=== PATIENT | female | born 1995 | race Caucasian/White ===

== ENCOUNTER 2017-09-04 21:30 | Emergency (ER) | payer OTHER ==
[~2017-09-04] VITALS: Ht 160 cm; Wt 48.4 kg
[2017-09-04 21:34] VITALS: TEMP 38.5; Ht 160 cm; Wt 48.4 kg
[2017-09-04] MEDS ORDERED: IBUPROFEN 600 MG TAB PO STA (21:53)
[2017-09-04] MEDS ORDERED: ACETAMINOPHEN 500 MG TAB PO STA (21:53)
[2017-09-04] MEDS ORDERED: BCPILLS PO (22:18)
[2017-09-04] MEDS ORDERED: CETITAB27 PO (22:18)
[2017-09-04 22:20] LABS: INFLUENZA B ANTIGEN Neg for Influ B (NEG)
[2017-09-04] MEDS ORDERED: OSELTAMIVIR PHOSPHATE 75 MG CAP PO STA (22:21)
[2017-09-04] MEDS ORDERED: OSEL75CA12 PO (23:00)
[2017-09-04 23:26] VITALS: BP 130/71; PULSE 93; O2SAT 97
--- NOTE | 2017-09-05 01:39 | EMERGENCY ROOM VISIT NOTE ---
History First contact with patient: 21:46 Chief Complaint: FLU LIKE SX Stated Complaint: FEVER,CONGESTION,SORE THROAT History of Present Illness The patient is a 22 year old female who presents to the Emergency Room with complaints of fever, chills, and sore throat for the past one to 2 days. The patient states that her parents were diagnosed with positive influenza. The patient has a cough that is nonproductive. She is not regularly taking anything [id number] for her symptoms. She rates her discomfort a 6/10. Review of Systems More than 10 systems were reviewed and otherwise negative with the exception of history of present illness. Past Medical/Surgical History No chronic medical disease Family History No pertinent family history Social History Smoking Status: Never Smoker Housing Status: lives with family Current/Historical Medications Scheduled Control Pills ( Control Pills), 1 TAB PO DAILY Oseltamivir (Tamiflu), 75 MG PO BID Scheduled PRN Cetirizine/Pseudoephedrine (Zyrtec-D Er 5MG/120MG), 1 TAB PO DAILY PRN for Seasonal Allergies Physical Exam Vital Signs Date Time Temp Pulse Resp B/P (MAP) Pulse Ox O2 Delivery O2 Flow Rate FiO2 09/04/17 23:26 93 18 130/71 97 09/04/17 21:34 38.5 121 18 134/78 96 Room Air Physical Exam VITALS: Vitals are noted on the nurse's note and reviewed by myself. Vital signs with fever GENERAL: Well-developed, well-nourished, white female, who is in no acute distress and resting comfortably. Patient is cooperative with the examination. HEAD: Normocephalic atraumatic. EARS: External ear normal. External auditory canals clear, tympanic membranes pearly bond without erythema or effusion bilaterally. EYES: Pupils equal round and reactive to light and accommodation. Conjunctivae without injection, sclerae without icterus. Extraocular movements intact. NOSE: Patent, turbinates without inflammation or discharge. MOUTH: Mucous membranes moist. Tonsils are not enlarged. Pharynx without erythema, blood, or exudate. Uvula midline. Airway patent. NECK: Supple without nuchal rigidity. No lymphadenopathy. No thyromegaly. Cervical spine is nontender. HEART: Regular rate and rhythm without murmurs gallops or rubs. LUNGS: Clear to auscultation bilaterally without wheezes, rales or rhonchi. No retractions or accessory muscle use. Medical Decision & Procedures Laboratory Results Test 09/04/17 21:40 Influenza Type A Antigen POS for Influ A (NEG) Influenza Type B Antigen Neg for Influ B (NEG) Medications Administered Medications (Trade) Dose Ordered Sig/Eamon Route Start Time Stop Time Status Last Admin Dose Admin Acetaminophen (Tylenol Tab) 1,000 mg NOW STAT PO 09/04/17 21:53 09/04/17 21:54 DC 09/04/17 21:58 1,000 MG Ibuprofen (Motrin Tab) 600 mg NOW STAT PO 09/04/17 21:53 09/04/17 21:54 DC 09/04/17 21:57 600 MG Oseltamivir Phosphate (Tamiflu Cap) 75 mg NOW STAT PO 09/04/17 22:21 09/04/17 22:22 DC 09/04/17 22:42 75 MG ED Course Physical exam and history were performed. Nursing notes, EMR, and Medication List were personally reviewed. Patient appears to have fever, sore throat, and flulike symptoms for the past one to 2 days. Influenza swab was performed. Rapid strep was gathered. The patient was given oral fluids, Tylenol, and Advil here in the department. Her rapid strep was negative. Influenza was positive for influenza A, which correlates with her symptoms. The patient was given Tamiflu here in the department as well as a continuation prescription. She is to follow with her primary care physician for further care and management. The chart was completed utilizing [employer] Voice Recognition Software. Grammatical errors, random word insertions, pronoun errors, and incomplete sentences are an occasional consequence of this system due to software limitations, ambient noise, and hardware issues. Any formal questions or concerns about the content, text, or information contained within the body of this dictation should be directly addressed to the provider for clarification. . Medical Decision Differential diagnosis: Etiologies such as viral syndrome, otitis, pharyngitis, pneumonia, influenza, meningitis, urinary tract infection, sepsis, bacteremia, as well as others were entertained. Impression Primary Impression: Influenza A Departure Information Dispostion Home / Self-Care Condition GOOD Prescriptions Oseltamivir (Tamiflu) 75 Mg Cap 75 MG PO BID for 5 Days, #10 CAP Prov: Fahad Upton PA-C 09/04/17 Forms HOME CARE DOCUMENTATION FORM, IMPORTANT VISIT INFORMATION Patient Instructions [facility], ED Flu Additional Instructions You were seen and evaluated today on an emergency basis only. This is not a substitute for, or an effort to provide, complete comprehensive medical care. It is not possible to recognize and treat all injuries or illnesses in a single emergency department visit. For this reason it is recommended that you followup with your primary care physician with any ongoing or persistent symptoms. For baseline pain relief you may alternate ibuprofen and acetaminophen every 4 hours for pain control. Take 600 mg ibuprofen (Advil) and then 4 hours later take 1000 mg acetaminophen (Tylenol). Do not take more than 3000 mg acetaminophen in a single day. Take Tamiflu twice daily as prescribed You are welcome to return to the emergency department anytime with new, worsening, or concerning symptoms.
== END 2017-09-04 23:20 | disposition home or self-care (01) ==
LOC: C.EDB 21:33
DX: J10.1 Influenza due to other identified influenza virus with other respiratory manifestations (principal)